=== PATIENT | female | born 1965 | race Caucasian/White ===

== ENCOUNTER → 2022-05-05 | Day surgery (SDC) | payer OTHER ==
[~2022-05-05] VITALS: Ht 166.4 cm; Wt 105.3 kg
[~2022-05-05] MED LIST: ASCORBIC ACID500 MG PO; B COMPLEX1 EACH PO; LOSARTAN POTASS25 MG PO; LOVAZA1 GM PO; MAG-OXIDE 400M400 MG PO; METFORMIN HCL750 MG PO; PANTOPRAZOLE SO40 MG PO; PROBIOTIC1 EAC6 PO; SYNTHROID50 MC1 PO; VITAMIN D310 MC1 PO; ZINC50 M1 PO
[2022-05-05 08:23] LABS: HCT 44.6 % (37.0-47.0); HGB 15.2 g/dl (12.5-16.0); MCH 30.1 pg (25.0-31.0); MCHC 34.1 g/dL (32.0-36.0); MCV 88.3 fL (78.0-100.0); MPV 10.6 fL (6.0-9.5); RBC 5.05 M/uL (4.20-5.40); RDW 12.8 % (11.5-14.0)
[2022-05-05 10:05] LABS: ALBUMIN 3.9 g/dL (3.4-5.0); BILIRUBIN - TOTAL 0.8 mg/dL (0.2-1.0); BUN/CREAT RATIO (CALC) 18.9 RATIO; CREATININE 0.74 mg/dL (0.51-0.95); GLOBULIN (CALCULATION) 3.3 g/dL; TOTAL PROTEIN 7.2 g/dL (6.4-8.2)
== END | disposition home or self-care (01) ==
LOC: FAS 07:27
PROVIDERS: Surgery
DX: Z12.11 Encounter for screening for malignant neoplasm of colon (principal); K63.89 Other specified diseases of intestine; K57.30 Diverticulosis of large intestine without perforation or abscess without bleeding; I10 Essential (primary) hypertension; Z88.8 Allergy status to other drugs, medicaments and biological substances; Z88.1 Allergy status to other antibiotic agents; Z91.030 Bee allergy status; Z91.040 Latex allergy status
CPT/HCPCS: 36415; 80053; J2250; J2704; J7120